=== PATIENT | male | born 1950 | race Caucasian/White ===

== ENCOUNTER 2016-04-17 11:08 | Outpatient (RCR) | payer MEDICARE, MEDICAID ==
[~2016-04-17 11:08] MED LIST: /TAMS4CA OR; ASPI325T OR; CORD200T OR; DEPA500T OR; MAXA10TA17 OR; SIMV20TA2 OR; TRAM50TA2 OR; VERA120C3 OR
== END 2016-04-23 ==
LOC: M CR 11:08
PROVIDERS: ATTEND Physician Assistant
DX: Z51.89 Encounter for other specified aftercare (principal); Z98.61 Coronary angioplasty status; I25.10 Atherosclerotic heart disease of native coronary artery without angina pectoris

== ENCOUNTER 2016-04-24 09:15 | Outpatient (RCR) | payer MEDICARE, MEDICAID | END 2016-05-21 | LOC: M CR 09:15 | PROVIDERS: ATTEND Physician Assistant | DX: Z98.61 Coronary angioplasty status (principal); I25.10 Atherosclerotic heart disease of native coronary artery without angina pectoris ==

== ENCOUNTER → 2017-10-03 | Outpatient (CLI) | payer MEDICARE, MEDICAID | LOC: M RAD 10:37 | DX: I73.9 Peripheral vascular disease, unspecified (principal) | CPT/HCPCS: 93925 ==

== ENCOUNTER → 2020-11-03 | Outpatient (CLI) | payer MEDICARE, MEDICAID ==
[~2020-11-03] MED LIST changes: -/TAMS4CA OR; +ALBU8.5H; +ATOR80TA59; +CARV3.12; +CLOP75TA2 PO; +DIVA500T94; +FLOM0.4C39 OR; +LISI2.5T9; +LORA-753 PO; +NITR0.4S14; +OMEP-221; +TAMS1CAP17; +TIZA2TA
== END ==
LOC: M LABSMTC 12:31
PROVIDERS: ATTEND Anesthesiology
DX: Z01.812 Encounter for preprocedural laboratory examination (principal); Z20.822 Contact with and (suspected) exposure to COVID-19

== ENCOUNTER 2020-11-08 12:34 | Day surgery (SDC) | payer MEDICARE, MEDICAID ==
[~2020-11-08] VITALS: Ht 177.8 cm; Wt 60.1 kg
[2020-11-08] MEDS ORDERED: NS 1,000 ML IV ONE (12:55)
[2020-11-08] MEDS ORDERED: MIDAZOLAM INJ 2MG/2ML VIAL (J2250 PER 1MG) As Ordered ONE ×2 (13:51→13:52)
[2020-11-08] MEDS ORDERED: LIDOCAINE VISCOUS 2% SOLN 15ML UDC As Ordered ONE (13:52)
[2020-11-08] MEDS: MIDAZOLAM INJ 2MG/2ML VIAL (J2250 PER 1MG) IV PRN ×2 (14:02→14:04)
[2020-11-08] MEDS ORDERED: LIDOCAINE VISCOUS 2% SOLN 15ML UDC MT ONE (14:40)
[2020-11-08 14:45] VITALS: BP 125/70
--- NOTE | 2020-11-08 16:02 | ECHO ---
ECHOCARDIOGRAM DATE OF PROCEDURE: 11/08/2020 Age: Gender: Height: Weight: REFERRING PHYSICIAN: Roxanne Church PA-C INDICATION: Mitral regurgitation (nonrheumatic). PREPROCEDURE DIAGNOSIS: Mitral regurgitation (nonrheumatic). POSTPROCEDURE DIAGNOSIS: Severe mitral regurgitation (nonrheumatic), mitral valve prolapse. No flail segments. PROCEDURE PERFORMED: Transesophageal echocardiogram. PROCEDURE PERFORMED BY: Olu Valenzuela M.D. CORSAGE [employer]ER: None. INTRAVENOUS SEDATION: Midazolam 3 mg intravenous (IV). COMPLICATIONS: None. PROCEDURE DESCRIPTION: Rhythm was sinus. Patient received viscous lidocaine to gargle and swallow. Following this, he received a total of a 3 mg midazolam IV for conscious sedation. Patient tolerated the procedure well without any immediate complications. Esophageal intubation was accomplished by Dr. Valenzuela without difficulty using a Hernandez 2-dimensional transesophageal echocardiogram probe. 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 Multiple mitral valve regurgitation jets were present. The total mitral regurgitation amount was severe with the mitral regurgitation reaching the superior roof of the left atrium. On some of the pulse wave Doppler signal of the pulmonary veins, a small amount of systolic flow reversal was present, consistent with severe mitral regurgitation. The atrial septum was intact anatomically and by color flow Doppler. Both atria were enlarged. The left atrial appendage was enlarged. No mass or thrombi were seen with the atria or their appendages. Left ventricle appeared normal in size and systolic function. Left ventricular ejection fraction was 60% by visual estimate. Right ventricle appeared normal in size and systolic function. No pericardial effusion. Mild aortic valve sclerosis was present. No aortic regurgitation. Aortic valve was 3-cuspid. Pulmonic valve and tricuspid valve were normal. Distal aortic arch and descending thoracic aorta showed some mild atheroma. CONCLUSIONS: 1. Mitral valve prolapse involving the anterior and posterior mitral leaflets. No flail segments. Severe mitral regurgitation. 2. Left atrial dilatation. 3. Normal left ventricle size and systolic function. LVEF 60% by visual estimate. 4. Mild atherosclerosis involving the distal aortic arch and descending thoracic aorta.
== END 2020-11-08 15:05 | disposition home or self-care (01) ==
LOC: M SDC 12:34
PROVIDERS: ATTEND Internal Medicine Cardiovascular Disease
DX: I34.0 Nonrheumatic mitral (valve) insufficiency (principal); I25.10 Atherosclerotic heart disease of native coronary artery without angina pectoris; G47.33 Obstructive sleep apnea (adult) (pediatric); J44.9 Chronic obstructive pulmonary disease, unspecified; G43.909 Migraine, unspecified, not intractable, without status migrainosus
CPT/HCPCS: 93312; 93320; 93325; J2250

== ENCOUNTER 2024-04-12 14:38 | Emergency (ER) | payer MEDICARE, MEDICAID ==
[~2024-04-12] VITALS: Ht 180.3 cm; Wt 60.9 kg
[~2024-04-12 14:38] MED LIST changes: -OMEP-221; +OMEP40CA5
[2024-04-12] MEDS: ALPRAZolam 0.5 MG TAB PO ONE (17:47)
[2024-04-12 18:07] VITALS: BP 145/75; TEMP 97.8; O2SAT 96
[2024-04-12 19:44] LABS: BASO % 0.4 % (0.0-1.0); EOS # 0.1 10^3/uL (0.0-0.5); EOS % 2.3 % (0.0-3.0); HEMATOCRIT 38.9 % (42.0-52.0); HEMOGLOBIN 12.6 g/dl (13.5-17.5); LYMPH # 1.2 10^3/uL (1.5-5.0); LYMPH % 23.2 % (24.0-44.0); MEAN CORPUSCULAR HEMOGLOBIN 29.6 pg (27.0-33.0); MEAN CORPUSCULAR HGB CONC 32.4 g/dl (32.0-36.5); MEAN CORPUSCULAR VOLUME 91.3 fl (80.0-96.0); MONO # 0.6 10^3/uL (0.0-0.8); MONO % 11.8 % (2.0-8.0); NEUTROPHILS # 3.2 10^3/uL (1.5-8.5); NEUTROPHILS % 61.9 % (36.0-66.0); PLATELET COUNT, AUTOMATED 192 10^3/uL (150-450); RED BLOOD COUNT 4.26 10^6/uL (4.30-6.10); WHITE BLOOD COUNT 5.2 10^3/uL (4.0-10.0)
[2024-04-12 20:03] LABS: INR 1.07; PROTHROMBIN TIME 14.2 SECONDS (12.5-14.5)
[2024-04-12 20:15] LABS: BLOOD UREA NITROGEN 20 MG/DL (9-23); CALCIUM LEVEL 9.2 MG/DL (8.3-10.6); CARBON DIOXIDE LEVEL 30 MMOL/L (20-31); CHLORIDE LEVEL 106 MMOL/L (98-107); CREATININE FOR GFR 0.81 MG/DL (0.70-1.30); GLOMERULAR FILTRATION RATE > 60.0 (>42); GLUCOSE, FASTING 86 MG/DL (74-106); POTASSIUM SERUM 4.1 MMOL/L (3.5-5.1); SODIUM LEVEL 144 MMOL/L (136-145)
[2024-04-12 21:38] LABS: C REACTIVE PROTEIN QUANTITATIV 0.59 MG/DL (<1.0)
[2024-04-12 21:59] LABS: ERYTHROCYTE SEDIMENTATION RATE 16 mm/hr (0-20)
== END 2024-04-12 22:09 | disposition home or self-care (01) ==
LOC: M ED 14:38
DX: H53.462 Homonymous bilateral field defects, left side (principal); I11.0 Hypertensive heart disease with heart failure; K21.9 Gastro-esophageal reflux disease without esophagitis; Z79.899 Other long term (current) drug therapy

== ENCOUNTER → 2024-07-28 | Outpatient (CLI) | payer MEDICARE, MEDICAID | LOC: M PLAIMG 10:20 | PROVIDERS: ATTEND Physician Assistant | DX: Z95.3 Presence of xenogenic heart valve (principal); I27.20 Pulmonary hypertension, unspecified ==